=== PATIENT | male | born 1990 | race American Indian/Alaskan Native ===

== ENCOUNTER 2016-10-07 02:41 | Emergency (ER) | payer BC ==
[2016-10-07 02:53] VITALS: BP 116/73
--- NOTE | 2016-10-07 05:06 | Cat Scan Report ---
FINAL REPORT EXAM: CT HEAD/BRAIN WO CON HISTORY: fall, head injury TECHNIQUE: CT imaging acquired through the head without intravenous contrast. Transaxial reformations are provided. PRIORS: None. FINDINGS: The ventricles, cisterns and sulci are normal. No intraparenchymal or extra-axial mass, hemorrhage, or mass effect. Bustillos and white-matter differentiation is normal. Normal spherical shape of the globes. Paranasal sinuses and mastoid air cells are clear. No skull fracture visualized. Question soft tissue swelling over the nasal bridge and right periorbital region, which is only partially imaged extends inferiorly off the field of view. IMPRESSION: No acute intracranial abnormality. Possible soft tissue swelling over the nasal bridge and right periorbital region, which is only partially imaged extends inferiorly off the field of view. Consider CT face as warranted.
--- NOTE | 2016-10-07 05:08 | Cat Scan Report ---
FINAL REPORT EXAM: CT CERVICAL SPINE WO CON HISTORY: fall, head injury TECHNIQUE: CT imaging is acquired through the cervical spine without contrast. Transaxial, coronal and sagittal reformations are provided. PRIORS: None. FINDINGS: The cervical spine is intact. Vertebral body heights are preserved. No acute fracture or listhesis. Atlanto-dens interval and odontoid process are intact. Intervertebral disc spaces are preserved. No perivertebral soft tissue swelling or hematoma identified. Limited soft tissue exam of the visualized neck is normal. IMPRESSION: No acute cervical spine fracture identified. Correlate with physical exam and follow up as warranted.
[2016-10-07 05:34] LABS: Basophils % (Auto) 0.2 % (0.0-1.8); Eosinophils % (Auto) 0.4 % (0.0-4.3); Hematocrit 48.5 % (35.5-45.6); Hemoglobin 16.2 gm/dl (11.8-15.2); Mean Corpuscular HGB Conc 34 % (32-34); Mean Corpuscular Hemoglobin 32 pg (28-32); Mean Corpuscular Volume 97 fl (84-94); Platelet Count 242 K/mm3 (140-440); Red Blood Count 5.02 M/mm3 (3.65-5.03); Red Cell Distribution Width 14.5 % (13.2-15.2); White Blood Count 6.2 K/mm3 (4.5-11.0)
[2016-10-07 05:42] LABS: INR 0.95 (0.87-1.13)
[2016-10-07 05:43] LABS: Partial Thromboplastin Time 27.6 Sec. (24.2-36.6)
[2016-10-07 05:52] LABS: Creatine Kinase MB 2.2 ng/mL (0.0-4.0)
[2016-10-07 05:54] LABS: Anion Gap 21 mmol/L; Blood Urea Nitrogen 12 mg/dL (9-20); Carbon Dioxide 24 mmol/L (22-30); Chloride 96.3 mmol/L (98-107); Creatine Kinase 281 units/L (55-170); Glucose 73 mg/dL (75-100); Potassium 3.9 mmol/L (3.6-5.0); Sodium 137 mmol/L (137-145)
[2016-10-07 06:11] LABS: Urine Drugs of Abuse Note Disclamer
[2016-10-07] MEDS ORDERED: XYLOCAINE 1% 20 mL ONE (06:22)
[2016-10-07] MEDS ORDERED: TRIPLE ANTIBIOTIC TP ONE ×2 (06:25→06:48)
--- NOTE | 2016-10-07 06:27 | Emergency Department Report ---
HPI - General Chief Complaint: Syncope Time Seen by Provider: 10/07/16 06:13 - HPI HPI: This is a 26-year-old -[place] male presents to the emergency department with complaint of drinking too much "on my birthday" and passing out. He fell down and hit his head and it caused a laceration to the top of the head/scalp. At the current time the patient's only complaint is "getting this gash closed on my head slight go to sleep." He denies any past medical history. He does not have a primary care doctor. He says that he is up-to- date with his tetanus vaccination. No recent travel or sick contacts at home. He denies any numbness, paresthesias, chest pain, shortness of breath, nausea, vomiting, fever, vision change. He did not take anything for symptoms prior to presentation. ED Past Medical Hx - Past Medical History Previous Medical History?: No - Surgical History Additional Surgical History: HERNIA REPAIR - Social History Smoking Status: Never Smoker Substance Use Type: Alcohol ED Review of Systems ROS: Stated complaint: HEAD LACERATION Other details as noted in HPI Comment: All other systems reviewed and negative Constitutional: denies: chills, fever Eyes: denies: eye pain, eye discharge, vision change ENT: denies: ear pain, throat pain Respiratory: denies: cough, shortness of breath, wheezing Cardiovascular: syncope. denies: chest pain, palpitations Gastrointestinal: denies: abdominal pain, nausea, diarrhea Genitourinary: denies: urgency, dysuria Musculoskeletal: denies: back pain, joint swelling, arthralgia Skin: denies: rash, lesions Neurological: denies: weakness, numbness, paresthesias Physical Exam - Physical Exam Vital Signs: Vital Signs 10/07/16 10/07/16 10/07/16 02:51 06:07 06:11 Temperature 97.9 F Pulse Rate 77 71 Respiratory 20 14 16 Rate Blood Pressure 116/73 Blood Pressure 116/73 [Left] O2 Sat by Pulse 100 99 99 Oximetry Physical Exam: GENERAL: The patient is well-developed well-nourished. HEENT: Normocephalic. Pupils equal reactive to light bilaterally. Extraocular motions are intact. Patient has moist mucous membranes. NECK: Supple. Trachea is midline. CHEST/LUNGS: Clear to auscultation. There is no respiratory distress noted. HEART/CARDIOVASCULAR: Regular. There is no tachycardia. There is no gallop rub or murmur. ABDOMEN: Abdomen is soft, nontender. Patient has normal bowel sounds. There is no abdominal distention. SKIN: There is a 2 cm laceration to the superior posterior portion of the scalp. No current bleeding. No signs or symptoms of infection. NEURO: The patient is awake, alert, and oriented. The patient is cooperative. The patient has no focal neurologic deficits. The patient has normal speech and gait. Cranial nerves II through XII grossly intact. MUSCULOSKELETAL: There is no tenderness or deformity. There is no limitation range of motion. There is no evidence of acute injury. Muscle strength 5 out of 5 upper and lower extremity bilaterally. ED Course Vital Signs 10/07/16 10/07/16 10/07/16 02:51 06:07 06:11 Temperature 97.9 F Pulse Rate 77 71 Respiratory 20 14 16 Rate Blood Pressure 116/73 Blood Pressure 116/73 [Left] O2 Sat by Pulse 100 99 99 Oximetry - Laceration /Wound Repair Head Wound Location: head (superior posterior scalp) Wound Length (cm): 2 Wound's Depth, Shape: superficial, linear Wound Explored: clean Anesthesia: 1% Lidocaine Volume Anesthetic (ccs): 3 Number of Sutures: 5 (ze) Sterile Dressing Applied?: Yes ED Medical Decision Making - Lab Data Result diagrams: 10/07/16 05:06 10/07/16 05:06 - EKG Data -: EKG Interpreted by Me EKG shows normal: sinus rhythm (with sinus arrhythmia), axis, intervals, QRS complexes, ST-T waves Rate: normal - EKG Data When compared to previous EKG there are: previous EKG unavailable Interpretation: normal EKG (with sinus arrhythmia) - Radiology Data Radiology results: report reviewed CT of the head does not show any acute process including no hemorrhage, mass, shift, diffuse edema or skull fracture. CT of the cervical spine does not show any fracture, dislocation, subluxation or any acute process. - Medical Decision Making 26-year-old male presents to the emergency department after passing out due to excessive alcohol use. The blood alcohol level checked in the emergency department was under the legal limit at 0.06. Since I have seen the patient he has been awake, alert and in no acute distress. His only complaint is getting the scalp laceration closed so he can go to sleep and is asking about activities he is allowed to do today. His labs are unremarkable and do not show any etiology of the patient's symptoms or sequela. Scalp laceration closed with 5 ze. Tetanus vaccination updated. He says that he has good follow-up with primary care. He was seen ambulatory in the emergency department and appears stable. No signs of any concussion or postconcussive symptoms at this time. He will follow-up with primary care and return to the ER with any worsening of his symptoms or any acute distress. - Differential Diagnosis scalp laceration, contusion, concussion, alcohol intoxication Critical Care Time: No Critical care attestation.: If time is entered above; I have spent that time in minutes in the direct care of this critically ill patient, excluding procedure time. ED Disposition Clinical Impression: Syncope Qualifiers: Syncope type: unspecified Qualified Code(s): R55 - Syncope and collapse Alcohol intoxication Qualifiers: Complication of substance-induced condition: uncomplicated Qualified Code(s): F10.920 - Alcohol use, unspecified with intoxication, uncomplicated Scalp laceration Qualifiers: Encounter type: initial encounter Qualified Code(s): S01.01XA - Laceration without foreign body of scalp, initial encounter Disposition: DC-01 TO HOME OR SELFCARE Is pt being admited?: No Condition: Stable Instructions: Laceration (ED), Syncope (ED), Abuse of Alcohol (ED), Staple Care (ED) Additional Instructions: Please follow-up with your primary care physician in the next few days. The ze need to be removed in about 7 days. You can use soap and water or shampoo but then make sure the area remains dry. He needs to be seen sooner if there is any development of signs/symptoms of infection such as discharge of pus or swelling. You can also return to the emergency department with any worsening of your symptoms or any acute distress. Referrals: PRIMARY CARE, [Primary Care Provider] - [facility] Time of Disposition: 06:39
[2016-10-07] MEDS ORDERED: BOOSTRIX IM ONE (06:28)
[2016-10-07] MEDS ORDERED: MOTRIN PO ONE (06:37)
[2016-10-07] MEDS ORDERED: XYLOCAINE 1% 20 mL INFILTRATI ONE (06:42)
[2016-10-07] MEDS ORDERED: TRIPLE ANTIBIOTIC TP SCH (08:00)
== END 2016-10-07 07:05 | disposition home or self-care (01) ==
LOC: ED 02:41
DX: S01.01XA Laceration without foreign body of scalp, initial encounter (principal); F10.129 Alcohol abuse with intoxication, unspecified; R55 Syncope and collapse; W01.198A Fall on same level from slipping, tripping and stumbling with subsequent striking against other object, initial encounter; Y93.89 Activity, other specified; Y99.8 Other external cause status; Y92.89 Other specified places as the place of occurrence of the external cause
CPT/HCPCS: 12001; 36415; 70450; 72125; 80048; 80307; 82550; 82553; 84484; 85025; 85610; 85730; 90715; 93005; 93010; 99284; G0480; 80320; A6250

== ENCOUNTER 2016-10-09 22:12 | Emergency (ER) | payer BC ==
[2016-10-09 23:24] LABS: Basophils % (Auto) 0.2 % (0.0-1.8); Eosinophils % (Auto) 0.8 % (0.0-4.3); Hematocrit 46.2 % (35.5-45.6); Hemoglobin 15.5 gm/dl (11.8-15.2); Mean Corpuscular HGB Conc 34 % (32-34); Mean Corpuscular Hemoglobin 32 pg (28-32); Mean Corpuscular Volume 96 fl (84-94); Platelet Count 245 K/mm3 (140-440); Red Blood Count 4.83 M/mm3 (3.65-5.03); Red Cell Distribution Width 14.4 % (13.2-15.2); White Blood Count 12.4 K/mm3 (4.5-11.0)
[2016-10-09 23:38] LABS: Alanine Aminotransferase 12 units/L (7-56); Albumin 4.1 g/dL (3.9-5); Albumin/Globulin Ratio 1.1 %; Alkaline Phosphatase 52 units/L (35-129); Anion Gap 17 mmol/L; BUN/Creatinine Ratio 11.81; Blood Urea Nitrogen 13 mg/dL (9-20); Calcium 8.9 mg/dL (8.4-10.2); Carbon Dioxide 23 mmol/L (22-30); Chloride 93.8 mmol/L (98-107); Glucose 91 mg/dL (75-100); Lipase 15 units/L (13-60); Potassium 3.2 mmol/L (3.6-5.0); Sodium 131 mmol/L (137-145); Total Protein 7.7 g/dL (6.3-8.2)
[2016-10-09 23:42] LABS: Bilirubin,Urine MOD (Negative); Blood,Urine NEG (Negative); Ketones,Urine 20 mg/dL (Negative); Leukocyte Esterase,Urine TR (Negative); Nitrite,Urine NEG (Negative)
[2016-10-10] MEDS ORDERED: BENTYL IM ONE (01:36)
--- NOTE | 2016-10-10 01:39 | Emergency Department Report ---
ED Abdominal Pain HPI - General Chief Complaint: Abdominal Pain Stated Complaint: ABD PAIN Time Seen by Provider: 10/10/16 01:32 Source: patient Mode of arrival: Ambulatory Limitations: No Limitations - History of Present Illness Initial Comments: 26-year-old male presents to the emergency department complaining of abdominal pain. Patient states for the past 2 days he has been having intermittent pain in his abdomen. Pain is described as cramping and sharp. Pain does not radiate. He reports associated nausea, but no vomiting. He reports watery diarrhea with occasional bright red blood. There are no other complaints. MD Complaint: abdominal pain -: Gradual, days(s) (2) Location: diffuse Radiation: none Migration to: no migration Severity: severe Severity scale (0 -10): 8 Quality: cramping, sharp Consistency: intermittent Improves With: nothing Worsens With: nothing Associated Symptoms: nausea, diarrhea, hematochezia - Related Data Previous Rx's Medication Instructions Recorded Last Taken Type HYDROcodone/APAP 5-325 [[place] 1 each PO Q6HR PRN #14 tablet 10/10/16 Unknown Rx 5/325] Allergies Allergy/AdvReac Type Severity Reaction Status Date / Time No Known Allergies Allergy Verified 10/07/16 06:42 ED Review of Systems ROS: Stated complaint: ABD PAIN Other details as noted in HPI Comment: All other systems reviewed and negative Gastrointestinal: abdominal pain, nausea, diarrhea, hematochezia ED Past Medical Hx - Past Medical History Previous Medical History?: No - Surgical History Past Surgical History?: Yes Additional Surgical History: HERNIA REPAIR - Family History Family history: no significant - Social History Smoking Status: Never Smoker Substance Use Type: None - Medications Home Medications: Home Medications Medication Instructions Recorded Confirmed Last Taken Type HYDROcodone/APAP 5-325 [[place] 1 each PO Q6HR PRN #14 tablet 10/10/16 Unknown Rx 5/325] ED Physical Exam - General Limitations: No Limitations General appearance: alert, in no apparent distress - Head Head exam: Present: atraumatic, normocephalic - Eye Eye exam: Present: normal appearance, PERRL, EOMI - ENT ENT exam: Present: normal exam, normal orophraynx, mucous membranes moist - Neck Neck exam: Present: normal inspection, full ROM. Absent: tenderness - Respiratory Respiratory exam: Present: normal lung sounds bilaterally. Absent: respiratory distress - Cardiovascular Cardiovascular Exam: Present: regular rate, normal rhythm, normal heart sounds - GI/Abdominal GI/Abdominal exam: Present: soft, normal bowel sounds. Absent: distended, tenderness - Extremities Exam Extremities exam: Present: normal inspection, full ROM. Absent: tenderness - Back Exam Back exam: Present: normal inspection, full ROM. Absent: tenderness - Neurological Exam Neurological exam: Present: alert, oriented X3. Absent: motor sensory deficit - Skin Skin exam: Present: warm, dry, intact ED Course Vital Signs 10/09/16 10/10/16 22:35 00:53 Temperature 98.6 F 98.7 F Pulse Rate 80 67 Respiratory 20 18 Rate Blood Pressure 128/84 Blood Pressure 131/78 [Left] O2 Sat by Pulse 100 100 Oximetry ED Medical Decision Making - Lab Data Result diagrams: 10/09/16 22:53 10/09/16 22:53 - Medical Decision Making Laboratory results reviewed and discussed with the patient. Patient will be discharged at this time to follow up with his primary care physician. - Differential Diagnosis abdominal pain, gastroenteritis Critical care attestation.: If time is entered above; I have spent that time in minutes in the direct care of this critically ill patient, excluding procedure time. ED Disposition Clinical Impression: Gastroenteritis Disposition: DC-01 TO HOME OR SELFCARE Is pt being admited?: No Condition: Stable Instructions: Gastroenteritis (ED) Prescriptions: HYDROcodone/APAP 5-325 [[place] 5/325] 1 each PO Q6HR PRN #14 tablet PRN Reason: Pain Referrals: PRIMARY CARE, [Primary Care Provider] - 3-5 Days KRISTEN BETANCUR MD [Staff Physician] - 3-5 Days Time of Disposition: 03:38
[2016-10-10] MEDS ORDERED: NORCO 5/325 ONE (04:28)
[2016-10-10] MEDS ORDERED: NORCO 5/325 PO ONE (04:29)
[2016-10-10 04:44] VITALS: BP 118/87
== END 2016-10-10 04:41 | disposition home or self-care (01) ==
LOC: ED 22:12
DX: K52.9 Noninfective gastroenteritis and colitis, unspecified (principal)
CPT/HCPCS: 36415; 80053; 81001; 83690; 85025; 96372; 99283; J0500